=== PATIENT | female | born 2000 | race Caucasian/White ===

== ENCOUNTER 2022-10-13 16:08 | Emergency (ER) | payer OTHER, SELFPAY ==
[2022-10-13 16:09] VITALS: BP 134/82; PULSE 88; RESP 16; TEMP 36.3; O2SAT 99; BMI 38.0
--- NOTE | 2022-10-13 16:49 | ED.VIS.DENTA ---
HPI History of Present Illness Chief Complaint: Dental PFSH PFSH Allergy/AdvReac Type Severity Reaction Status Date / Time adhesive Allergy Hives Verified 10/13/22 16:12 Penicillins Allergy Hives Verified 10/13/22 16:12 Surgical History (Updated 10/13/22 @ 16:25 by Syeda Tripp) History of tonsillectomy and adenoidectomy Social History Smoking Status: Current every day smoker tobacco type: cigarettes EXAM Physical Exam Const Vital Signs: 10/13/22 16:09 10/13/22 18:41 Temperature 97.3 F L Temperature Source Temporal Pulse Rate 88 Respiratory Rate 16 18 Blood Pressure 134/82 H Blood Pressure Mean 99 Pulse Ox 99 Oxygen Delivery Method Room Air [facility] MDM MDM Narrative Medical decision making narrative: HISTORY OF PRESENT ILLNESS: 22-year-old female here with dental pain, left upper face swelling. No drooling. No fever. States she had worsening swelling of the left upper face today she thinks her symptoms are getting worse despite taking antibiotics as prescribed. She is a 4/7 of clindamycin 300 mg 3 times daily. Denies any neck stiffness. Denies any drooling. Denies any vomiting. Denies any submandibular edema. REVIEW OF SYSTEMS: Pertinent positives: Dental pain Pertinent negatives: Neck stiffness, jaw swelling PHYSICAL EXAM: Nursing triage notes reviewed, Vital signs reviewed Constitutional: please see mdm HENT: MMM, there is evidence of fluctuance and induration likely secondary to dental abscess in the left upper teeth, no submandibular edema, no tonsillar exudates or erythema, uvula midline, patient was controlling secretions, no drooling Eyes: Pupils equal round and reactive to light, Extraocular muscles intact Neck: No stridor, no JVD, full neck ROM Lungs: Clear to auscultation, No wheezing or rales. No increased work of breathing, no conversational dyspnea, no accessory muscle use, no nasal flaring. No respiratory distress noted Heart: Regular rate and rhythm, No murmurs, No rubs and No gallops, 2+ distal pulses (radial, femoral, posterior tibial) in all extremities MEDICAL DECISION MAKING: Chief Complaint: Dental pain External records reviewed: No recent ED visits or hospitalizations MDM Narrative: The patient was hemodynamically stable, afebrile, nontoxic-appearing.No recent ED visits or hospitalizations noted in our chart I considered the following differential diagnosis: Dental abscess, ANUG, Ludewig's angina, RPA, EDGE TRIMMER, dental caries, gingivitis I performed a digital block, infraorbital nerve block with bupivacaine. Incision and drainage was performed with the assistance of 18-gauge needle. Please see procedure notes. Patient T tolerated procedure well. She noted improvement in symptoms. No clear life-limiting etiology be ascertained. Patient instructed to continue to take oral antibiotics and to return if symptoms change worsen or she develop trouble swallowing, drooling, stridor, neck stiffness, submandibular swelling. She expressed understanding agree with the plan. Procedure: Nerve Block The procedure was performed by myself. Indication: Pain Risks and Benefits: Discussed risk of infection, intravenous injection and bleeding. Consent: Verbal Consent obtained from patient and/or legal guardian Location: Infraorbital Procedure Description: I inserted a 25-gauge Angiocath just superior to the left upper canine. Syringe was pulled back with no bleeding noted. Approximately 3 cc of bupivacaine was injected. There were no immediate complications. Patient tolerance of procedure: Tolerated well, no immediate complications Procedure: Incision and Drainage The procedure was performed by myself. Location: Left upper teeth Risks and benefits: Risks, benefits, and alternatives were discussed. Questions were sought and answered, and verbal consent provided for the procedure. Anesthesia: Bupivacaine Procedure Description: Use 18-gauge needle to drain approximately 1 cc of purulent fluid The patient tolerated the procedure well without complications. Factors affecting care: None Social determinants of health: None History obtained from others: The patient's mother Shared decision making: I will have a discussion with the patient and or visitors regarding risk/benefits of further testing or admission. They will be made aware of of the risk/benefits inherent in this decision they will be given the opportunity to voice understanding. Consults: None Discharge Plan Triage Chief Complaint: Dental ED Provider: Rickie Montes Dx/Rx/DC Orders Clinical Impression: Abscess, dental Instructions: Dental Abscess Primary Care Provider: Gordy Hernandez Referrals: Gordy Hernandez DO [Primary Care Provider] - Activity Restrictions/Additional Instructions: Thank you for trusting us with your care today! Please take Tylenol (2 pills, 650 mg), ibuprofen (2 pills, 400 mg) every 6 hours as needed for pain and fever control. Please continue take antibiotics as prescribed. Please complete entire course of antibiotics. Please return to the emergency department if your symptoms change or worsen. Specifically if develop neck stiffness, swelling of your jaw, decreased vision. Fever of you are unable to take antibiotics by mouth. Please follow with your primary care physician for further outpatient evaluation and management. Disposition Disposition: Home, Self Care Discharge Date/Time: 10/13/22 18:42
[2022-10-13] MEDS: Bupivacaine 0.5%/Epi 1.8 ML Syringe 3.6 ML INFILT (18:40)
[2022-10-13 18:41] VITALS: RESP 18
== END 2022-10-13 18:42 | disposition home or self-care (01) ==
PROVIDERS: Emergency Provider Emergency Medicine; PCP Family Medicine; Visit Provider Emergency Medicine
DX: K04.7 Periapical abscess without sinus (principal); F17.210 Nicotine dependence, cigarettes, uncomplicated
CPT/HCPCS: 41800; 64999; 99282